=== PATIENT | female | born 1990 | race Two or more races ===

== ENCOUNTER 2019-06-01 18:57 | Emergency (ER) | payer OTHER ==
[~2019-06-01] VITALS: Ht 160 cm; Wt 88.0 kg
[2019-06-01] MEDS ORDERED: IV NORMAL SALINE 1000ML BAG 1,000 ML IV ONE (20:15)
[2019-06-01] MEDS ORDERED: ONDANSETRON PF 4 MG/2 ML VIAL. IV ONE (20:15)
[2019-06-01] MEDS ORDERED: fentaNYL PF VIAL 100 MCG/2 ML VIAL IVP ONE (20:15)
[2019-06-01 20:23] LABS: BASO % 0 % (0-3); EOS # 0.2 x10^3/uL (0.0-0.7); EOS % 2 % (0-3); HEMATOCRIT 32.7 % (36.0-47.0); HEMOGLOBIN 10.5 g/dL (12.0-15.5); LYMPH # 2.7 x10^3/uL (1.0-4.8); LYMPH % 26 % (24-48); MEAN CORPUSCULAR HEMOGLOBIN 23 pg (25-35); MEAN CORPUSCULAR HGB CONC 32 g/dL (31-37); MEAN CORPUSCULAR VOLUME 71 fL (79-100); MONO # 0.7 x10^3/uL (0.0-1.1); MONO % 7 % (0-9); NEUT # 6.6 x10^3/uL (1.8-7.7); NEUT % 65 % (31-73); PLATELET COUNT 314 x10^3/uL (140-400); RED CELL DISTRIBUTION WIDTH 16.7 % (11.5-14.5); WHITE BLOOD COUNT 10.2 x10^3/uL (4.0-11.0)
[2019-06-01 20:31] LABS: CALCIUM 8.9 mg/dL (8.5-10.1); CREATININE 0.5 mg/dL (0.6-1.0); GFR 145.9; POTASSIUM 3.3 mmol/L (3.5-5.1)
[2019-06-01 20:37] LABS: ALBUMIN 3.1 g/dL (3.4-5.0); ALBUMIN/GLOBULIN RATIO 0.8 (1.0-1.7); TOTAL BILIRUBIN 0.1 mg/dL (0.2-1.0); TOTAL PROTEIN 6.8 g/dL (6.4-8.2)
[2019-06-01 20:47] LABS: PLT ESTIMATE ADEQUATE (ADEQUATE)
[2019-06-01 20:48] LABS: ANISOCYTOSIS SLIGHT; HYPOCHROMIA SLIGHT; MICROCYTOSIS MOD; OVALOCYTES FEW; POIKILOCYTOSIS SLIGHT
[2019-06-01 23:50] VITALS: BP 109/55
--- NOTE | 2019-06-02 00:15 | RAD ---
MRI pelvis without contrast HISTORY: 15 week female with right lower quadrant abdominal pain. FINDINGS: Gravid uterus, this exam was not tailored for evaluation. Imaged cervix and ovaries are grossly unremarkable. Most of the sequences are fat saturated which limits visualization of the appendix. On the coronal T1-weighted sequence there is no fat saturation, however no normal or abnormal appendix can be identified adjacent of the cecum and is likely obscured by surrounding small bowel loops. There is no pericecal edema or fluid to suggest inflammatory changes from appendicitis. No hydronephrosis. IMPRESSION: The appendix cannot be identified presumably is obscured by surrounding bowel loops. There is no pericecal inflammation or free fluid to suggest appendicitis. No hydronephrosis. Electronically signed by: Sergio Gomez MD (06/02/2019 12:12 AM) [facility]
--- NOTE | 2019-06-02 00:47 | PHYS DOC ---
Past Medical History Past Medical History: Other Additional Past Medical Histor: PCOS (ZANDRA POLK APRN) Past Surgical History: Tonsillectomy Additional Past Surgical Histo: RIGHT THIGH RECONSTRUCTION, RIGHT MIDDLE AND RING FINGER AMPUTEE (ZANDRA POLK APRN) Alcohol Use: None Drug Use: None (ZANDRA POLK APRN) Attending Signature I have participated in the care of this patient and I have reviewed and agree with all pertinent clinical information above including history, exam, and recommendations. (TERESA ECHOLS MD) Adult General Chief Complaint Chief Complaint: ABDOMINAL PAIN IN HPI HPI Patient is a 28 year old female 3 para 1, 1 , who presents to the ED today complaining of 8 out of 10 grabbing right lower quadrant abdominal pain that began this morning. Patient denies any nausea, vomiting or diarrhea. She reports the pain is intermittent. Denies anything specifically exacerbating or relieving the pain. She reports she was seen by the [employer] early this morning. She reports they checked her urine, they did an ultrasound and checked on the baby as well as the gallbladder. She reports they were negative, she reports the OB requested her to come back to the ED and have an appendicitis workup. Patient denies any fever. (ZANDRA POLK APRN) Review of Systems Review of Systems Constitutional: Denies fever or chills [] Eyes: Denies change in visual acuity, redness, or eye pain [] HENT: Denies nasal congestion or sore throat [] Respiratory: Denies cough or shortness of breath [] Cardiovascular: No additional information not addressed in HPI [] GI: Reports right lower quadrant abdominal pain , denies nausea, vomiting, bloody stools or diarrhea [] : Denies dysuria or hematuria [] Musculoskeletal: Denies back pain or joint pain [] Integument: Denies rash or skin lesions [] Neurologic: Denies headache, focal weakness or sensory changes [] All other systems were reviewed and found to be within normal limits, except as documented in this note. (ZANDRA POLK APRN) Current Medications Current Medications Current Medications Medications (Trade) Dose Ordered Sig/Bee Start Time Stop Time Status Last Admin Dose Admin Fentanyl Citrate (Fentanyl 2ml Vial) 50 mcg 1X ONCE 06/01/19 20:15 06/01/19 20:30 DC 06/01/19 21:13 50 MCG Ondansetron HCl (Zofran) 4 mg 1X ONCE 06/01/19 20:15 06/01/19 20:30 DC 06/01/19 21:12 4 MG Sodium Chloride 1,000 ml @ 1,000 mls/hr 1X ONCE 06/01/19 20:15 06/01/19 21:14 DC 06/01/19 21:06 1,000 MLS/HR (TERESA ECHOLS MD) Allergies Allergies Allergies Coded Allergies Type Severity Reaction Last Updated Verified Penicillins Adverse Reaction Intermediate 06/01/19 Yes (TERESA ECHOLS MD) Physical Exam Physical Exam Constitutional: Well developed, well nourished, no acute distress, non-toxic appearance. [] HENT: Normocephalic, atraumatic, bilateral external ears normal, oropharynx moist, no oral exudates, nose normal. [] Eyes: PERRLA, EOMI, conjunctiva normal, no discharge. [] Neck: Normal range of motion, no tenderness, supple, no stridor. [] Cardiovascular:Heart rate regular rhythm, no murmur [] Lungs & Thorax: Bilateral breath sounds clear to auscultation [] Abdomen: Gravid abdomen. Bowel sounds normal, soft, diffuse tenderness to the mid abdomen and right lower quadrant, negative psoas sign, negative obturator sign, no masses, no pulsatile masses. [] Skin: Warm, dry, no erythema, no rash. [] Back: No tenderness, no CVA tenderness. [] Extremities: No tenderness, no cyanosis, no clubbing, ROM intact, no edema. [] Neurologic: Alert and oriented X 3, normal motor function, normal sensory function, no focal deficits noted. [] Psychologic: Affect normal, judgement normal, mood normal. [] (ZANDRA POLK APRN) Current Patient Data Vital Signs Vital Signs Date Time Temp Pulse Resp B/P (MAP) Pulse Ox O2 Delivery O2 Flow Rate FiO2 06/01/19 23:50 85 109/55 (73) 06/01/19 21:13 22 99 Room Air 06/01/19 19:20 98.3 98.3 (TERESA ECHOLS MD) Lab Values Laboratory Tests Test 06/01/19 19:27 06/01/19 19:32 White Blood Count 10.2 x10^3/uL (4.0-11.0) Red Blood Count 4.60 x10^6/uL (3.50-5.40) Hemoglobin 10.5 g/dL (12.0-15.5) L Hematocrit 32.7 % (36.0-47.0) L Mean Corpuscular Volume 71 fL (79-100) L Mean Corpuscular Hemoglobin 23 pg (25-35) L Mean Corpuscular Hemoglobin Concent 32 g/dL (31-37) Red Cell Distribution Width 16.7 % (11.5-14.5) H Platelet Count 314 x10^3/uL (140-400) Neutrophils (%) (Auto) 65 % (31-73) Lymphocytes (%) (Auto) 26 % (24-48) Monocytes (%) (Auto) 7 % (0-9) Eosinophils (%) (Auto) 2 % (0-3) Basophils (%) (Auto) 0 % (0-3) Neutrophils # (Auto) 6.6 x10^3/uL (1.8-7.7) Lymphocytes # (Auto) 2.7 x10^3/uL (1.0-4.8) Monocytes # (Auto) 0.7 x10^3/uL (0.0-1.1) Eosinophils # (Auto) 0.2 x10^3/uL (0.0-0.7) Basophils # (Auto) 0.0 x10^3/uL (0.0-0.2) Platelet Estimate Adequate (ADEQUATE) Hypochromasia Slight Poikilocytosis Slight Anisocytosis Slight Microcytosis Mod Ovalocytes Few Sodium Level 138 mmol/L (136-145) Potassium Level 3.3 mmol/L (3.5-5.1) L Chloride Level 103 mmol/L (98-107) Carbon Dioxide Level 26 mmol/L (21-32) Anion Gap 9 (6-14) Blood Urea Nitrogen 5 mg/dL (7-20) L Creatinine 0.5 mg/dL (0.6-1.0) L Estimated GFR (Cockcroft-Gault) 145.9 BUN/Creatinine Ratio 10 (6-20) Glucose Level 83 mg/dL (70-99) Calcium Level 8.9 mg/dL (8.5-10.1) Total Bilirubin 0.1 mg/dL (0.2-1.0) L Aspartate Amino Transferase (AST) 19 U/L (15-37) Alanine Aminotransferase (ALT) 13 U/L (14-59) L Alkaline Phosphatase 51 U/L (46-116) Total Protein 6.8 g/dL (6.4-8.2) Albumin 3.1 g/dL (3.4-5.0) L Albumin/Globulin Ratio 0.8 (1.0-1.7) L Lipase 129 U/L (73-393) POC Urine HCG, Qualitative Hcg positive (Negative) Laboratory Tests 06/01/19 19:27 Laboratory Tests 06/01/19 19:27 (TERESA ECHOLS MD) EKG EKG [] (ZANDRA POLK APRN) Radiology/Procedures Radiology/Procedures []PROCEDURE: PELVIS WO CONTRAST MRI pelvis without contrast HISTORY: 15 week female with right lower quadrant abdominal pain. FINDINGS: Gravid uterus, this exam was not tailored for evaluation. Imaged cervix and ovaries are grossly unremarkable. Most of the sequences are fat saturated which limits visualization of the appendix. On the coronal T1-weighted sequence there is no fat saturation, however no normal or abnormal appendix can be identified adjacent of the cecum and is likely obscured by surrounding small bowel loops. There is no pericecal edema or fluid to suggest inflammatory changes from appendicitis. No hydronephrosis. IMPRESSION: The appendix cannot be identified presumably is obscured by surrounding bowel loops. There is no pericecal inflammation or free fluid to suggest appendicitis. No hydronephrosis. Electronically signed by: Sandy Gomez MD (06/02/2019 12:12 AM) [facility] DICTATED and SIGNED BY: SANDY GOMEZ MD DATE: 06/02/19 0012 (ZANDRA POLK APRN) Course & Med Decision Making Course & Med Decision Making Pertinent Labs and Imaging studies reviewed. (See chart for details) This is a 28-year-old female patient currently 15 weeks presenting to [facility] ED today for appendicitis rule out. Patient has had right lower quadrant abdominal pain since this morning. Was seen by OB and head ultrasound of the gallbladder as well as the baby which were negative. She reports her urine was also negative. She was sent to the ED for appendicitis workup. CBC, CMP-no acute findings she is afebrile. MRI of the pelvis to rule out appendicitis-appendicitis was not well visualized but the radiologist mentions it's presumably obscured by surrounding surrounding bowel loops. There is no pericecal inflammation or free fluid to suggest appendicitis. No hydronephrosis. FHT 150-170 BPM Patient is in no distress, was discharged to home. Follow-up with [facility] [facility] in the course of this week or next week. (ZANDRA POLK APRN) Dragon Disclaimer Dragon Disclaimer This electronic medical record was generated, in whole or in part, using a voice recognition dictation system. (ZANDRA POLK APRN) Departure Departure Impression: Primary Impression: Right lower quadrant abdominal pain Disposition: HOME, SELF-CARE Condition: STABLE Referrals: GRACE COLE PA-C (PCP) Follow-up with your [employer] tomorrow Patient Instructions: Abdominal Pain During , [id number] Additional Instructions: You were evaluated in the emergency room for right lower quadrant abdominal pain in , your MRI of the pelvis could not identify the appendix well but there is no signs of inflammation or free fluid around the appendix region to suggest appendicitis. Your white count is normal. Please go home and rest. Take Tylenol as needed for pain. Kindly follow-up with your [employer] tomorrow morning ZANDRA POLK APRN Jun 02, 2019 00:47 TERESA ECHOLS MD Jun 02, 2019 18:20
--- NOTE | 2019-06-02 01:07 | NUR ---
Asked to get FHT in ER. FHT ranged 150-170
== END 2019-06-02 01:13 | disposition home or self-care (01) ==
LOC: ER 18:57
DX: O26.892 Other specified pregnancy related conditions, second trimester (principal); R10.31 Right lower quadrant pain; Z3A.15 15 weeks gestation of pregnancy; Z88.0 Allergy status to penicillin
CPT/HCPCS: 36415; 72195; 80053; 81025; 83690; 85025; 96374; 96375; 99285; J2405; J3010; J7030